=== PATIENT | female | born 1995 | race Two or more races ===

== ENCOUNTER 2024-04-25 10:32 | Emergency (ER) | payer OTHER ==
[~2024-04-25] VITALS: Ht 167.6 cm; Wt 90.7 kg
[2024-04-25] MEDS ORDERED: ONDANSETRON HCL 2 MG/ML VIAL IV STA (10:52)
[2024-04-25] MEDS ORDERED: 0.9 % SODIUM CHLORIDE 1,000 ML IV STA (10:52)
[2024-04-25] MEDS ORDERED: ONDANSETRON HCL 2 MG/ML VIAL ONE (10:55)
[2024-04-25 11:12] LABS: HEMATOCRIT 40.1 % (36.0-45.00); MEAN CELL VOLUME 91.2 fL (80.00-100.00); MEAN CORPUSCULAR HEMOGLOBIN 31.8 pg (27.00-32.0); MEAN CORPUSCULAR HGB CONC 34.8 g/dl (32.0-36.0); PLATELET COUNT 276 K/uL (150-450); RED CELL DISTRIBUTION WIDTH 12.2 % (11.5-14.5)
[2024-04-25 12:14] LABS: CALCIUM 8.9 mg/dL (8.5-10.1); CREATININE SERUM 0.76 mg/dL (0.55-1.02); GFR 90.62; POTASSIUM 3.83 mEq/L (3.5-5.1)
== END 2024-04-25 12:17 | disposition home or self-care (01) ==
LOC: ER 10:34
PROVIDERS: Emergency Medicine
DX: R10.9 Unspecified abdominal pain (principal)